=== PATIENT | female | born 1980 | race Caucasian/White ===

== ENCOUNTER 2024-11-15 10:17 | Emergency (ER) | payer MEDICAID, SELFPAY ==
[2024-11-15 10:22] VITALS: PULSE 88; RESP 22; O2SAT 96; BMI 30.9
[2024-11-15 10:28] VITALS: BP 148/99; PULSE 56; RESP 18; TEMP 36.4; O2SAT 97; BMI 39.4
--- NOTE | 2024-11-15 11:16 | EKG_ITS ---
[facility] Test Date: 2024-11-15 Pat Name: MEGAN RUVALCABA Department: Room: - Gender: Female [employer]ician: : 1980 Requested By: Albertina Nguyen Order Number: [id number] Reading MD: Albertina Nguyen Measurements Intervals [place] Rate: 91 P: 34 MN: 163 QRS: 26 QRSD: 102 T: 114 QT: 391 QTc: 483 Interpretive Statements SINUS RHYTHM WITH FREQUENT SUPRAVENTRICULAR PREMATURE COMPLEXES POSSIBLE LEFT ATRIAL ENLARGEMENT [-0.1mV P-WAVE IN V1/V2] LEFT VENTRICULAR HYPERTROPHY AND ST-T CHANGE [VOLTAGE CRITERIA PLUS ST/T ABNORMALITY] No previous ECG available for comparison /store/S0/[id number]/[id number].pdf
--- NOTE | 2024-11-15 11:16 | XR_ITS ---
Examination: Abdomen sonogram, Limited Date and time of exam: November 15, 2024 1136 hours INDICATIONS: Right upper abdominal pain and vomiting beginning 2 days ago Technique: Real-time pope scale transabdominal sonographic images of the upper abdomen obtained. Findings: Normal gallbladder. Normal common bile duct 0.2 cm Pancreatic head 2.6 cm Liver 17.9 cm fatty infiltration with focal fatty sparing Left lobe liver cyst 11 mm Normal hepatopedal portal venous flow Patent IVC IMPRESSION: Normal gallbladder
--- NOTE | 2024-11-15 11:19 | XR_ITS ---
Examination: CT abdomen with intravenous contrast CT pelvis with intravenous contrast 2-D coronal reconstructions 2-D sagittal reconstructions Date and time of exam:November 20, 2024, 1624 hrs., Comparison March 30, 2005. Indications: Upper abdominal pain and vomiting today.. CTDI: vol (mGy) 11.0. DLP: (mGycm) 609. Technique: Multiple axial sections of the abdomen and pelvis have been obtained. 64 slice high-resolution scanner used. 3 mm axial sections have been obtained, post intravenous injection 60 cc [id number]. 2-D sagittal, coronal reconstructions obtained. Low dose protocols were performed. One or more of the following dose reduction techniques were used; automated exposure control, adjustment of the mA and/or KV according to patient size, use of iterative reconstruction technique. Findings: Fatty infiltration throughout the liver, no focal liver lesions. No gallstones. Spleen not enlarged. No pancreatic mass. Adrenal glands are not enlarged. Suspicious for mild edema involving the right kidney, there is right perinephric stranding No ureteral calculi or hydronephrosis. No bowel obstruction. Normal appendix. No diverticulitis. 24 mm right ovarian follicular cyst Intrauterine device satisfactory position. Minimal thickening of urinary bladder. Osseous structures intact. Impression: Suspicious for right, arthritis Mild cystitis pattern
--- NOTE | 2024-11-15 11:19 | PD.EDNV ---
Nausea/Vomit./Diarrhea-RME/HPI General Chief complaint: Nausea/Vomiting/Diarrhea Stated complaint: VOMITING Time Seen by Provider: 11/15/24 11:08 Arrival date/time: 11/15/24 10:17 RME / HPI RME / HPI Narrative: 44-year-old female patient with significant history of drug abuse, alcohol abuse, came in for evaluation regarding vomiting. Patient has been vomiting since yesterday, associated with upper abdominal pain, severity moderate. Denies any blood in the vomiting. Denies any fever. Denies any cough denies any diarrhea or constipation. Patient admits to drinking alcohol however the last drink was 5 days ago according to the family. Patient also uses marijuana mask from time to time. Denies any other complaints no medications taken prior to arrival. Denies any ill contacts. Related Data Previous Rx's ?Medication ?Instructions ?Recorded amoxicillin 875 mg-potassium 1 tab PO Q12H #20 tabs 07/13/18 clavulanate 125 mg tablet (Augmentin) ibuprofen 800 mg tablet 800 mg PO TID PRN pain #30 tabs 07/13/18 lisinopril 10 1 tab PO QDAY #30 tabs 11/15/24 mg-hydrochlorothiazide 12.5 mg tablet ondansetron HCl 4 mg tablet 4 mg PO Q8H PRN nausea and 11/15/24 vomiting 5 days #20 tabs pantoprazole 40 mg tablet,delayed 40 mg PO BID #30 tabs 11/15/24 release (Protonix) Allergies Allergy/AdvReac Type Severity Reaction Status Date / Time codeine Allergy Verified 07/12/18 16:56 Review of Systems Review of Systems Narrative Review of Systems: Review of system reviewed and within normal limits except mentioned in HPI ED Exam Narrative Physical exam: VITAL SIGNS: Reviewed. GENERAL APPEARANCE: Alert and interactive, follows commands, no acute distress, HEAD AND FACE: Non-traumatic. ENT: PERRL, pink conjunctivitis, eyelid no trauma, Mucous membrane dry NECK: Supple, nontender, no nuchal rigidity. CHEST: No tenderness, no crepitus, no paradoxical movement, no retractions. LUNGS: Clear, well ventilated, symmetric, no rales, no wheezing, no ronchi, no stridor, good breath sounds bilaterally. HEART: Regular rate, regular rhythm, no murmur, no gallops. ABDOMEN: Soft, positive bowel sounds, nondistended, no guarding, upper abdominal tenderness, no rebound, no masses, RECTAL: Deferred. GENITAL: Deferred. NEUROLOGICAL: Gross motor function intact sensory function intact, Appropriate for age. MUSCULOSKELETAL: low back nontender, full range of motion. EXTREMITIES: Nontender, full range of motion. SKIN: Color pink, dry, no rash, no lacerations, no abrasions, no contusions. LYMPHATICS: Deferred. Course Quality Measures none Orders Category Date Time Status CT Screening NOW Care 11/15/24 11:19 Completed EKG (ED ONLY) *Do not use* NOW Care 11/15/24 11:[address] abdomen pelvis w con Stat Exams 11/15/24 11:19 Completed EKG (ED Only) Stat Exams 11/15/24 11:16 Draft US gall bladder Stat Exams 11/15/24 11:16 Completed Alcohol, Blood Medical Stat Lab 11/15/24 11:24 Completed CBC Stat Lab 11/15/24 11:24 Completed Comprehensive Metabolic Panel Stat Lab 11/15/24 11:24 Completed Drug Screen,Urine Stat Lab 11/15/24 15:29 Completed HCG Qualitative,Urine Stat Lab 11/15/24 15:29 Completed Lactate (Lactic Acid) Stat Lab 11/15/24 11:24 Completed Lipase Stat Lab 11/15/24 11:24 Completed Magnesium Stat Lab 11/15/24 11:24 Completed Prothrombin Time with INR Stat Lab 11/15/24 11:24 Completed UA, C/S IF [Urinalysis, C/S if Indicated] Stat Lab 11/15/24 15:29 Completed Famotidine Inj [Pepcid Inj] Med 11/15/24 11:16 Discontinued 20 mg IVP X1 ONE Haloperidol Lactate [Haldol Inj] Med 11/15/24 11:16 Discontinued 5 mg IM X1 ONE Labetalol IV [Trandate IV] Med 11/15/24 16:38 Discontinued 10 mg IVP X1 ONE Metoclopramide Inj [Reglan Inj] Med 11/15/24 11:16 Discontinued 10 mg IVP X1 ONE Potassium Chloride [K-Dur] Med 11/15/24 13:35 Discontinued 40 meq PO X1 ONE Ringers Lactated 1000 ml [Lactated Ringers] 1,000 ml Med 11/15/24 11:17 Discontinued IV 999 mls/hr Ringers Lactated 1000 ml [Lactated Ringers] 1,000 ml Med 11/15/24 11:18 Discontinued IV 999 mls/hr chlordiazePOXIDE HCl [Librium] Med 11/15/24 15:34 Discontinued 25 mg PO X1 ONE Vital Signs Vital signs: Vital Signs Temperature 97.5 F 11/15/24 10:28 Pulse Rate 56 L 11/15/24 10:28 Respiratory Rate 18 11/15/24 10:28 Blood Pressure 148/99 H 11/15/24 10:28 Pulse Oximetry (%) 97 11/15/24 10:28 Oxygen Delivery Method Room Air 11/15/24 10:28 Nausea/Vomiting/Diarrhea MDM Narrative MDM Narrative:: 44-year-old female patient with significant history of drug abuse, alcohol abuse, came in for evaluation regarding vomiting. Patient has been vomiting since yesterday, associated with upper abdominal pain, severity moderate. Denies any blood in the vomiting. Denies any fever. Denies any cough denies any diarrhea or constipation. Patient admits to drinking alcohol however the last drink was 5 days ago according to the family. Patient also uses marijuana mask from time to time. Denies any other complaints no medications taken prior to arrival. Denies any ill contacts. Ultrasound of gallbladder came back unremarkable. CT scan of the abdomen pelvis came back with gastritis pattern otherwise unremarkable. Patient's laboratory workup is significant for WBC count of 18.1 which could be reactive in nature due to vomiting. Urinalysis no UTI potassium 3.3 patient received potassium replacement. Urinalysis negative for UTI positive meth and marijuana. Patient was given IV fluids, Haldol, Librium, Pepcid, and IV fluids and Reglan. No recurrence of vomiting noted in the ED, Patient was advised to stop using marijuana and meth. Patient agrees with the plan. Patient data External records reviewed:: None Clinical information provided by:: patient Social determinants that could affect healthcare access:: alcohol use Patient has the following chronic illnesses:: None How is presenting disease/condition affected by chronic disease/condition?: exacerbated by Evaluation data The following diagnostics were reviewed and interpreted by me:: lab results and radiology exam(s) Lab and/or radiology exams considered but not ordered:: None Interpretation Summary: See results MDM Medications / Prescriptions Medications / Prescriptions considered but not ordered:: None Medication administrations:: Medication Administration History Discontinued Medications Chlordiazepoxide HCl (Chlordiazepoxide Hcl 25 Mg Capsule) 25 mg PO X1 ONE Stop: 11/15/24 15:35 Last Admin: 11/15/24 15:41 Dose: 25 mg Documented By: EF Famotidine (Famotidine Inj 10 Mg/Ml Vial 2 Ml) 20 mg IVP X1 ONE Stop: 11/15/24 11:17 Last Admin: 11/15/24 11:37 Dose: 20 mg Documented By: EF Haloperidol Lactate (Haloperidol Lact Inj 5 Mg/Ml Vial) 5 mg IM X1 ONE Stop: 11/15/24 11:17 Last Admin: 11/15/24 11:38 Dose: 5 mg Documented By: EF Lactated Ringer's (Lactated Ringers) 1,000 mls @ 999 mls/hr IV .Q1H1M ONE Stop: 11/15/24 12:17 Last Infusion: 11/15/24 12:39 Dose: Infused Documented By: Admin: 11/15/24 11:38 Dose: 999 mls/hr Documented By: EF Lactated Ringer's (Lactated Ringers) 1,000 mls @ 999 mls/hr IV .Q1H1M ONE Stop: 11/15/24 12:18 Last Infusion: 11/15/24 15:00 Dose: Infused Documented By: Admin: 11/15/24 11:38 Dose: 999 mls/hr Documented By: EF Labetalol HCl (Labetalol Inj 5 Mg/Ml Vial 20 Ml) 10 mg IVP X1 ONE Stop: 11/15/24 16:39 Last Admin: 11/15/24 16:45 Dose: 10 mg Documented By: EF Metoclopramide HCl (Metoclopramide Inj 5 Mg/Ml Vial 2 Ml) 10 mg IVP X1 ONE; Protocol Stop: 11/15/24 11:17 Last Admin: 11/15/24 11:37 Dose: 10 mg Documented By: EF Potassium Chloride (Potassium Chloride 20 Meq Tabcr) 40 meq PO X1 ONE Stop: 11/15/24 13:36 Last Admin: 11/15/24 13:44 Dose: 40 meq Documented By: EF See MDM Consultations Consultation(s) initiated? (list below): No Diagnosis Nausea Differential Diagnosis: food poisoning, gastroenteritis and dehydration Most likely diagnosis given after review of the tests above:: Cannabinoid hyperemesis syndrome, dehydration, gastritis Admission Indicated Admission indicated?: not indicated Admission Request Was there a request for admission?: No Disposition Plan Disposition Plan: Discharge Discharge Attestation Discharge Attestation: The patient and all family members were given an opportunity to ask questions and understood the discharge instructions. Discharge instructions specifically effects, indications for sooner follow up or return to the emergency department, and the expected course of current diagnosis. Patient condition: Stable Discharge Plan Plan Patient Disposition: HOME (Self Care) Discharge Disposition comment: Stable Prescriptions/Referrals Prescriptions/Med Rec: New pantoprazole [Protonix] 40 mg tablet,delayed release (DR/EC) 40 mg PO BID Qty: 30 0RF ondansetron HCl 4 mg tablet 4 mg PO Q8H PRN (Reason: nausea and vomiting) 5 Days Qty: 20 0RF lisinopril-hydrochlorothiazide 10-12.5 mg tablet 1 tab PO QDAY Qty: 30 0RF No Action ibuprofen 800 mg tablet 800 mg PO TID PRN (Reason: pain) Qty: 30 0RF amoxicillin-pot clavulanate [Augmentin] 875-125 mg tablet 1 tab PO Q12H Qty: 20 0RF Referrals: No Primary/Family,Physician [Primary Care Provider] - In 1 week Problem List Clinical Impression: Dehydration, Vomiting, Cannabinoid hyperemesis syndrome, Hypertension Patient/Caregiver Discharge Instructions Discharge Activity: activity as tolerated Education Materials: ED Vomiting (Adult) Additional Instructions: Thank you for the opportunity for serving you today. You are stable for discharged . You are advised to: Follow-up with your PCP in 1 to 2 days Return to ED for worsening of symptoms Increase oral fluids Take medication as prescribed Print Language: Japanese Stand Alone Forms: Francine Award Info., Patient Portal Info Letter
[2024-11-15 11:33] LABS: Lactate (Lactic Acid) 1.4 mMol/L (0.4-2.0)
[2024-11-15 11:36] LABS: Basophils # (Auto) 0.1 Thou/mm3 (0.0-0.2); Basophils % (Auto) 0 % (0-2.5); Eosinophils # (Auto) 0.1 Thou/mm3 (0.0-0.5); Eosinophils % (Auto) 0 % (0-10); Hematocrit 39.4 % (36.0-46.0); Hemoglobin 13.3 g/dL (12.0-16.0); Immature Granulocytes Auto 0.06 Thou/mm3 (0.00-0.00); Lymphocytes # (Auto) 2.2 Thou/mm3 (1.0-4.8); Lymphocytes % (Auto) 12 % (10-50); Mean Corpuscular HGB Conc 33.8 g/dl (31.0-37.0); Mean Corpuscular Hemoglobin 30.5 pg (25.0-35.0); Mean Corpuscular Volume 90 fL (80-100); Monocytes # (Auto) 1.6 Thou/mm3 (0.0-0.8); Monocytes % (Auto) 9 % (0-12); Neutrophils # (Auto) 14.2 Thou/mm3 (1.8-7.7); Neutrophils % (Auto) 78 % (37-80); Nucleated Red Blood Cell # 0.00 Thou/mm3 (0.00-0.00); Nucleated Red Blood Cell % 0 /100 WBC (0); Platelet Count 247 Thou/mm3 (140-440); RDW Standard Deviation 42.9 fL (36.4-46.3); Red Blood Count 4.36 Miln/mm3 (4.00-5.20); White Blood Count 18.1 Thou/mm3 (3.6-11.0)
[2024-11-15] MEDS: FAMOTIDINE INJ 10 MG/ML VIAL 2 ML 20 MG IVP (11:37)
[2024-11-15] MEDS: METOCLOPRAMIDE INJ 5 MG/ML VIAL 2 ML 10 MG IVP (11:37)
[2024-11-15] MEDS: RINGERS LACTATED 1000 ML 1,000 ML 999 ML IV ×2 (11:38)
[2024-11-15] MEDS: HALOPERIDOL LACT INJ 5 MG/ML VIAL IM (11:38)
[2024-11-15 11:50] LABS: INR 1.1 (0.9-1.3); Prothrombin Time 12.3 Seconds (9.0-12.2)
[2024-11-15 12:14] LABS: Alanine Aminotransferase 15 U/L (10-49); Albumin, Serum 4.3 gm/dL (3.5-5.0); Albumin/Globulin Ratio 1.4 (1.2-2.2); Alcohol, Blood Medical < 3.0 mg/dL (0-10.0); Alkaline Phosphatase 84 U/L (46-116); Anion Gap 12 (7-16); Aspartate Amino Transferase 14 U/L (0-34); BUN/Creatinine Ratio 12 Ratio (12-20); Bilirubin,Total 0.7 mg/dL (0.3-1.2); Blood Urea Nitrogen 11 mg/dL (9-23); Calcium 10.4 mg/dL (8.3-10.6); Calcium (Corrected) 10.4 mg/dL (8.5-10.1); Carbon Dioxide 26.4 mMol/L (20.0-31.0); Chloride 102 mMol/L (98-107); Creatinine (Component) 0.9 mg/dL (0.6-1.3); Estimated Creatinine Clearance 93.9 mL/min (>60); Globulin 3.1 gm/dL (2.3-3.5); Glucose 122 mg/dL (74-106); Lipase 25 U/L (12-53); Magnesium 1.6 mg/dL (1.6-2.6); Osmolality,Calculated 279 (275-295); Potassium 3.3 mMol/L (3.4-5.1); Sodium 140 mMol/L (136-145); Total Protein 7.4 gm/dL (5.7-8.2); eGFR > 60 See Note
[2024-11-15 14:14] VITALS: BP 138/103; PULSE 97; RESP 18; TEMP 36.7; O2SAT 98
[2024-11-15 15:33] LABS: Collection Type, Urine Clean Catch
[2024-11-15 15:45] LABS: Bacteria,Urine Rare; Bilirubin,Urine Negative (Negative); Blood,Urine Trace (Negative); Clarity,Urine Clear (Clear/Hazy); Color,Urine Yellow (Lt Yel-Yel); Culture Indicated,Urine Not Indicated; Glucose, Urine 1+ (Negative); Ketones,Urine Negative (Negative); Leukocyte Esterase,Urine Negative (Negative); Nitrite,Urine Negative (Negative); PH,Urine 6.5 (5.0-7.0); Protein,Urine 1+ (Neg - Trace); RBC,Urine 5 /hpf (0-3); Specific Gravity,Urine 1.021 (1.001-1.035); Squamous Epithelial Cell,Urine 2 /hpf (0-5); Urobilinogen,Urine Negative mg/dL (0.0-1.0); WBC,Urine 7 /hpf (0-5)
[2024-11-15 15:50] LABS: HCG Qualitative,Urine Negative
[2024-11-15 15:58] LABS: Amphetamine/Methamp Scrn,U Positive (Negative); Barbiturate Screen,Urine Negative (Negative); Benzodiazepines Screen,Urine Negative (Negative); Benzoylecgonine Screen, Ur Negative (Negative); Fentanyl Screen,Urine Negative (Negative); Opiate Screen,Urine Negative (Negative); THC Screen,Urine Positive (Negative)
[2024-11-15 16:34] VITALS: BP 185/122; PULSE 98; RESP 18; TEMP 36.7; O2SAT 98
[2024-11-15 16:45] VITALS: BP 185/121; PULSE 104
[2024-11-15] MEDS: LABETALOL INJ 5 MG/ML VIAL 20 ML 10 MG IVP (16:45)
[2024-11-15 18:05] VITALS: BP 175/118; PULSE 91; RESP 18; TEMP 37.2; O2SAT 100
== END 2024-11-15 18:29 | disposition home or self-care (01) ==
PROVIDERS: Nurse Practitioner Family; Emergency Provider Family Medicine
DX: E86.0 Dehydration (principal); R11.10 Vomiting, unspecified; F12.10 Cannabis abuse, uncomplicated; I10 Essential (primary) hypertension
CPT/HCPCS: 36415; 74177; 76705; 80053; 80307; 80320; 81001; 81025; 83605; 83690; 83735; 85025; 85610; 93005; 96361; 96372; 96374; 96375; 99284; A4649; J1630; J2765; J3490; J7120; Q9967; A9270; G0480; J1920